=== PATIENT | female | born 1945 | race Caucasian/White ===

== ENCOUNTER 2024-03-07 09:47 | Emergency (ER) | payer MEDICARE, SELFPAY ==
--- NOTE | 2024-03-07 09:57 | ED.GENADULT ---
HPI - General Adult General Chief complaint: Dental/Oral Stated complaint: temp/swelling in mouth Time Seen by Provider: 03/07/24 09:57 Source: patient, RN notes reviewed and old records reviewed Mode of arrival: ambulatory Limitations: no limitations History of Present Illness HPI narrative: 78-year-old female to [facility] for complaint of acute on chronic upper left dental pain. Patient states she has an impacted wisdom tooth in that area that she has had issues with for years . Patient states having a partial that she has had difficulty wearing over the past couple of years and that she had it adjusted in an attempt to make it more comfortably. Patient reports a wound that she can feel with her tongue but she cannot see and that it has been draining for over two weeks and that she woke up this morning with visible swelling and a low grade fever. Patient reports that she called her dentist this morning and was advised to be seen here today. Patient in no acute distress. Respirations even and nonlabored. Related Data Home Medications Medication Instructions Recorded Confirmed lisinopril 5 mg tablet 5 mg PO DAILY 03/07/24 03/07/24 Allergies Allergy/AdvReac Type Severity Reaction Status Date / Time gluten Allergy Diarrhea Verified 03/07/24 10:07 Review of Systems Review of Systems: All systems reviewed & are unremarkable except as noted in HPI and below Constitutional: Constitutional: Reports no additional constitutional complaints Eyes: Eyes: Reports no additional eye complaints ENT: Reports as per HPI, Denies bleeding gums, Denies dysphagia, Denies vertigo, Denies dizziness, Denies headache(s), Denies hoarseness, Reports mouth pain (upper left posterior gums), Denies neck pain, Denies throat swelling and Denies tongue swelling Cardiovascular: Cardiovascular: Reports no additional cardiovascular complaints, Denies chest pain and Denies dyspnea Respiratory: Respiratory: Reports no additional respiratory complaints, Denies cough and Denies dyspnea Musculoskeletal: Musculoskeletal: Reports no additional musculoskeletal complaints Neurologic: Reports system reviewed and no additional complaints, except as documented Psychiatric: Psychiatric: Reports no additional psychiatric complaints PMFSH Comments At the time of my signature, I reviewed and agree with the nursing past medical, surgical, social, and family history. There is no relevant family history pertinent to the patient complaint. Exam Const: General: cooperative, healthy appearing, comfortable, no acute distress, alert and well nourished Nutritional Appearance: well nourished Orientation/consciousness: patient oriented x3 Limitations: no limitations HENMT: Head: normal to inspection Ears: external ears normal Face/Nose/Sinus: Normal external nose present, Normal nares present, No face symmetric (swelling to left cheek/jaw), No erythema and No edema Face and sinus: normal facial exam, no erythema and no edema Mouth: Yes lip normal, Yes tongue normal, Yes oropharynx normal, Yes moist mucous membranes, No drooling, Yes malodorous breath and No muffled voice Teeth and gingiva: gingiva abnormal (open wound posterior upper outer left gingiva) with purulent discharge and tender Throat: posterior oropharynx normal Eyes: General: appearance normal, both eyes and all related structures Neck: Neck: normal visual inspection, full ROM and no meningeal signs Lymphatic: no lymphadenopathy noted and no lymphedema noted Chest: Chest palpation & inspection: normal inspection of the chest Resp: Effort & Inspection: normal respiratory effort and able to speak in complete sentences Auscultation: clear to auscultation bilaterally Cardio: Jugular venous distension: no JVD Rate: regular rate Rhythm: regular rhythm Back/Spine/Pelvis: Cervical Spine: cervical ROM normal Skin: General skin exam: normal color, no rashes or lesions noted and turgor normal Neuro: Gener
[2024-03-07 10:00] VITALS: BP 164/91; PULSE 88; RESP 20; TEMP 37.5; O2SAT 100
== END 2024-03-07 10:35 | disposition home or self-care (01) ==
PROVIDERS: Emergency Provider Nurse Practitioner Family
DX: K04.7 Periapical abscess without sinus (principal); T18.0XXA Foreign body in mouth, initial encounter; W44.9XXA Unspecified foreign body entering into or through a natural orifice, initial encounter; I10 Essential (primary) hypertension
CPT/HCPCS: 99213; G0463